=== PATIENT | male | born 1940 | race Caucasian/White ===

== ENCOUNTER 2021-08-22 11:27 | Outpatient (RCR) | payer MEDICARE ==
[~2021-08-22] VITALS: Ht 177.8 cm; Wt 85.0 kg
[2021-08-22 11:40] VITALS: BP 132/65
[2021-08-22] MEDS ORDERED: FERRIC CARBOXYMALTOSE INJ 750 MG in NS (IVPB) 250 ML IV SCH (12:15)
== END 2021-08-23 ==
LOC: SDC 11:27
PROVIDERS: ATTEND Internal Medicine Nephrology
DX: N18.9 Chronic kidney disease, unspecified (principal); D63.1 Anemia in chronic kidney disease

== ENCOUNTER 2021-08-29 11:14 | Outpatient (RCR) | payer MEDICARE ==
[2021-08-29 11:27] VITALS: BP 140/53
[2021-08-29] MEDS ORDERED: FERRIC CARBOXYMALTOSE INJ 750 MG in NS (IVPB) 250 ML IV ONE (11:30)
== END 2021-09-23 | disposition home or self-care (01) ==
LOC: SDC 11:14
PROVIDERS: ATTEND Internal Medicine Nephrology
DX: D50.9 Iron deficiency anemia, unspecified (principal); D63.1 Anemia in chronic kidney disease; N18.9 Chronic kidney disease, unspecified
CPT/HCPCS: 96365

== ENCOUNTER → 2021-10-16 | Outpatient (CLI) | payer MEDICARE ==
[2021-10-16 11:52] VITALS: BP 109/52
[2021-10-16 12:37] LABS: HEMOGLOBIN 10.8 g/dL (13.3-17.7)
[2021-10-16 13:32] VITALS: BP 0/0
== END ==
LOC: SDC 11:29
PROVIDERS: ATTEND Internal Medicine Nephrology
DX: N18.4 Chronic kidney disease, stage 4 (severe) (principal); D63.1 Anemia in chronic kidney disease
CPT/HCPCS: 36415; 82728; 83540; 83550; 85014; 85018; 96372